=== PATIENT | female | born 1980 | race Caucasian/White ===

== ENCOUNTER 2017-10-01 13:52 | Emergency (ER) | payer OTHER ==
[2017-10-01] MEDS ORDERED: diphenhydrAMINE INJ 50 MG/ML VIAL IVP STA (15:05)
[2017-10-01] MEDS ORDERED: PROCHLORPERAZINE 10 MG/2 ML VIAL IVP STA (15:05)
[2017-10-01] MEDS ORDERED: KETOROLAC 60 MG/2 ML VIAL IVP STA (15:05)
--- NOTE | 2017-10-01 15:13 | ED Physician Documentation ---
History of Present Illness - Stated complaint Stated Complaint: BERNAL - Chief complaint Chief Complaint: Neuro - History obtained from History obtained from: Patient, Family - History of Present Illness Timing: Yesterday Pain level max: 8 Pain level now: 8 - Additonal information Additional information: Patient is a 37-year-old female who is visiting from [place]. Has a history of pseudotumor cerebri. States has a worsening headache today. Her last lumbar puncture was approximately 1 month ago, states that she normally receives on once every 6 months or so. She is on acetazolamide at home. Tried rizatriptan without relief. Did not bring her injectable Imitrex with her. No fevers. No trauma. Worse with light and sound, better with a darkened room. Review of Systems Ten Systems: 10 systems reviewed and negative Constitutional: denies: Fever, Chills, Myalgias Ears: denies: Ear pain Nose: denies: Rhinorrhea / runny nose, Congestion Throat: denies: Sore throat Cardiac: denies: Chest pain / pressure Respiratory: denies: Cough, Wheezing GI: denies: Abdominal Pain, Diarrhea : denies: Dysuria, Frequency, Hesitancy, Now EGA Skin: denies: Rash Musculoskeletal: denies: Neck pain, Back pain Neurologic: denies: Headache PD PAST MEDICAL HISTORY - Past Medical History Past Medical History: Yes Cardiovascular: None Respiratory: None Neuro: Other Endocrine/Autoimmune: None GI: None DIRECTOR CLOUD TRANSFORMATION: None : None HEENT: None Psych: Anxiety Musculoskeletal: None Derm: None Other Past Medical History: pseudo brain tumor. - Past Surgical History Past Surgical History: No - Allergies Allergies/Adverse Reactions: Allergies Allergy/AdvReac Type Severity Reaction Status Date / Time acetaminophen [From Vicodin] AdvReac Headache Verified 10/01/17 14:02 codeine AdvReac Dizziness Verified 10/01/17 14:02 hydrocodone [From Vicodin] AdvReac Headache Verified 10/01/17 14:02 morphine AdvReac Dizziness Verified 10/01/17 14:02 - Social History Does the pt smoke?: No Smoking Status: Never smoker PD ED PE NORMAL - Vitals Vital signs reviewed: Yes - General General: Alert and oriented X 3, Other (appears uncomfortable in darkened room.) - HEENT HEENT: Moist mucous membranes - Neck Neck: Supple, no meningeal sign - Cardiac Cardiac: RRR - Respiratory Respiratory: No respiratory distress, Clear bilaterally - Abdomen Abdomen: Soft, Non tender, Non distended - Derm Derm: Warm and dry - Neuro Neuro: Alert and oriented X 3, embedder 2-12 intact, No motor deficit, No sensory deficit - Psych Psych: Normal mood, Normal affect Results - Vitals Vitals: Vital Signs - 24 hr 10/01/17 10/01/17 13:57 16:03 Temperature 36.1 C L Heart Rate 92 81 Respiratory 16 16 Rate Blood Pressure 97/83 H 97/55 L O2 Saturation 97 95 Oxygen O2 Source BIPAP PD MEDICAL DECISION MAKING - ED course Complexity details: re-evaluated patient, considered differential, d/w patient, d/w family ED course: Patient is a 37-year-old female with a long-standing history of pseudotumor cerebri. She states that normally Toradol, Compazine and Benadryl are given through the IV and this resolves her headache. This was utilized and headache resolved. Feels much better. No evidence of subarachnoid hemorrhage or meningitis. Patient counseled regarding signs and symptoms for which I believe and urgent re-evaluation would be necessary. Patient with good understanding of and agreement to plan and is comfortable going home at this time This document was made in part using voice recognition software. While efforts are made to proofread this document, sound alike and grammatical errors may occur. - Sepsis Event Vital Signs: Vital Signs - 24 hr 10/01/17 10/01/17 13:57 16:03 Temperature 36.1 C L Heart Rate 92 81 Respiratory 16 16 Rate Blood Pressure 97/83 H 97/55 L O2 Saturation 97 95 Oxygen O2 Source BIPAP Departure - Departure Disposition: 01 Home, Self Care Clinical Impression: Headache Qualifiers: Headache type: unspecified Headache chronicity pattern: acute headache Intractability: not intractable Qualified Code(s): R51 - Headache Condition: Good Instructions: ED Cephalgia Unspecified Follow-Up: your,doctor as needed [Other] Comments: Go home and rest today. Return if you worsen. Discharge Date/Time: 10/01/17 16:05
[2017-10-01 16:05] VITALS: BP 97/55
== END 2017-10-01 16:05 | disposition home or self-care (01) ==
LOC: ED 13:52
DX: R51 Headache (principal); Z86.011 Personal history of benign neoplasm of the brain
CPT/HCPCS: 96374; 96375; 99283; J1200